=== PATIENT | female | born 1935 | race Caucasian/White ===

== ENCOUNTER → 2016-11-24 | Outpatient (CLI) | payer MEDICARE, BC ==
[2016-11-24 08:15] LABS: ABSOLUTE EOSINOPHILS # (AUTO) 0.3 10^3/uL (0.0-0.6); ABSOLUTE LYMPHOCYTES (AUTO) 0.9 10^3/uL (0.5-4.7); ABSOLUTE MONOCYTES (AUTO) 0.2 10^3/uL (0.1-1.4); BASOPHILS % (AUTO) 0.4 % (0-2); EOSINOPHILS % (AUTO) 7.8 % (0-6); LYMPHOCYTES % (AUTO) 19.2 % (13-45); MEAN CORPUSCULAR HEMOGLOBIN 31.1 pg (27.0-33.4); MEAN CORPUSCULAR HGB CONC 34.3 g/dL (32.0-36.0); MEAN CORPUSCULAR VOLUME 91 fl (80-97); MONOCYTES % (AUTO) 5.3 % (3-13); RED BLOOD COUNT 4.52 10^6/uL (3.72-5.28); RED CELL DISTRIBUTION WIDTH 13.3 % (11.5-14.0); SEGMENTED NEUTROPHILS % (AUTO) 67.3 % (42-78); WHITE BLOOD COUNT 4.5 10^3/uL (4.0-10.5)
[2016-11-24 08:36] LABS: ALANINE AMINOTRANSFERASE 34 U/L (9-52); ALBUMIN 4.2 g/dL (3.5-5.0); ALKALINE PHOSPHATASE 133 U/L (38-126); ANION GAP 11 (5-19); ASPARTATE AMINO TRANSFERASE 26 U/L (14-36); BILIRUBIN,DIRECT 0.1 mg/dL (0.0-0.4); BILIRUBIN,TOTAL 0.7 mg/dL (0.2-1.3); BLOOD UREA NITROGEN 11 mg/dL (7-20); CALCIUM 9.6 mg/dL (8.4-10.2); CARBON DIOXIDE 30 mmol/L (22-30); CHLORIDE 105 mmol/L (98-107); CHOLESTEROL 131.39 mg/dL (0-200); CREATININE RESULT 0.66 mg/dL (0.52-1.25); Direct HDL 48 mg/dL (>40); GLUCOSE 119 mg/dL (75-110); POTASSIUM 3.8 mmol/L (3.6-5.0); SODIUM 146.3 mmol/L (137-145); TOTAL PROTEIN 6.8 g/dL (6.3-8.2); TRIGLYCERIDES 95 mg/dL (<150)
[2016-11-24 08:46] LABS: DIRECT LDL 57 mg/dL (<100)
== END ==
LOC: OD 07:48
PROVIDERS: ATTEND Physician Assistant
DX: I10 Essential (primary) hypertension (principal); E78.2 Mixed hyperlipidemia
CPT/HCPCS: 36415; 80053; 80061; 85025

== ENCOUNTER → 2017-06-12 | Outpatient (CLI) | payer MEDICARE, BC ==
[2017-06-12 08:21] LABS: ABSOLUTE EOSINOPHILS # (AUTO) 0.2 10^3/uL (0.0-0.6); ABSOLUTE LYMPHOCYTES (AUTO) 0.7 10^3/uL (0.5-4.7); ABSOLUTE MONOCYTES (AUTO) 0.3 10^3/uL (0.1-1.4); ABSOLUTE NEUT (AUTO) 3.2 10^3/uL (1.7-8.2); BASOPHILS % (AUTO) 0.5 % (0-2); HEMATOCRIT 37.7 % (36.0-47.0); HEMOGLOBIN 13.1 g/dL (12.0-15.5); HGB HCT DIFFERENCE 1.6; MEAN CORPUSCULAR HEMOGLOBIN 31.8 pg (27.0-33.4); MEAN CORPUSCULAR HGB CONC 34.7 g/dL (32.0-36.0); MEAN CORPUSCULAR VOLUME 92 fl (80-97); MONOCYTES % (AUTO) 7.6 % (3-13); RED BLOOD COUNT 4.11 10^6/uL (3.72-5.28); RED CELL DISTRIBUTION WIDTH 13.4 % (11.5-14.0); SEGMENTED NEUTROPHILS % (AUTO) 71.9 % (42-78); WHITE BLOOD COUNT 4.4 10^3/uL (4.0-10.5)
[2017-06-12 08:39] LABS: ALANINE AMINOTRANSFERASE 40 U/L (9-52); ALBUMIN 4.1 g/dL (3.5-5.0); ALKALINE PHOSPHATASE 122 U/L (38-126); ANION GAP 13 (5-19); ASPARTATE AMINO TRANSFERASE 26 U/L (14-36); BILIRUBIN,DIRECT 0.4 mg/dL (0.0-0.4); BILIRUBIN,TOTAL 0.7 mg/dL (0.2-1.3); BLOOD UREA NITROGEN 11 mg/dL (7-20); CALCIUM 9.2 mg/dL (8.4-10.2); CARBON DIOXIDE 29 mmol/L (22-30); CHLORIDE 104 mmol/L (98-107); CHOLESTEROL 128.11 mg/dL (0-200); CREATININE RESULT 0.72 mg/dL (0.52-1.25); Direct HDL 49 mg/dL (>40); GLUCOSE 101 mg/dL (75-110); POTASSIUM 3.8 mmol/L (3.6-5.0); SODIUM 145.5 mmol/L (137-145); TOTAL PROTEIN 6.7 g/dL (6.3-8.2); TRIGLYCERIDES 88 mg/dL (<150)
[2017-06-12 08:51] LABS: DIRECT LDL 61 mg/dL (<100)
== END ==
LOC: OD 07:03
PROVIDERS: ATTEND Physician Assistant
DX: E78.2 Mixed hyperlipidemia (principal); D64.9 Anemia, unspecified; R73.01 Impaired fasting glucose; E55.9 Vitamin D deficiency, unspecified
CPT/HCPCS: 36415; 80053; 80061; 82306; 83036; 85025

== ENCOUNTER 2017-08-29 10:38 | Emergency (ER) | payer MEDICARE, BC ==
[2017-08-29] MEDS ORDERED: ASPIRIN 81 MG TABLET, CHEWABLE PO ONE (11:18)
[2017-08-29] MEDS ORDERED: DILTIAZEM HCL INJ 25 MG/5 ML VIAL IV ONE (11:21)
[2017-08-29] MEDS ORDERED: DILTIAZEM HCL/D5W 125 MG/125 ML RTUINJ IV PRN (11:22)
[2017-08-29 11:37] LABS: ABSOLUTE EOSINOPHILS # (AUTO) 0.1 10^3/uL (0.0-0.6); ABSOLUTE LYMPHOCYTES (AUTO) 1.1 10^3/uL (0.5-4.7); ABSOLUTE MONOCYTES (AUTO) 0.3 10^3/uL (0.1-1.4); ABSOLUTE NEUT (AUTO) 4.6 10^3/uL (1.7-8.2); BASOPHILS % (AUTO) 0.5 % (0-2); EOSINOPHILS % (AUTO) 1.3 % (0-6); HEMATOCRIT 41.4 % (36.0-47.0); HEMOGLOBIN 14.3 g/dL (12.0-15.5); LYMPHOCYTES % (AUTO) 17.8 % (13-45); MEAN CORPUSCULAR HEMOGLOBIN 31.4 pg (27.0-33.4); MEAN CORPUSCULAR HGB CONC 34.6 g/dL (32.0-36.0); MEAN CORPUSCULAR VOLUME 91 fl (80-97); MONOCYTES % (AUTO) 5.4 % (3-13); PLATELET COUNT 149 10^3/uL (150-450); RED BLOOD COUNT 4.57 10^6/uL (3.72-5.28); RED CELL DISTRIBUTION WIDTH 12.5 % (11.5-14.0); TOTAL CELLS COUNTED % (AUTO) 100 %; WHITE BLOOD COUNT 6.1 10^3/uL (4.0-10.5)
--- NOTE | 2017-08-29 11:37 | ER Document Report ---
ED General - General Chief Complaint: Palpitations Stated Complaint: CHEST PAIN Time Seen by Provider: 08/29/17 11:03 Notes: Patient was sent here from Dr. Rolon office where she was evaluated this morning for atrial fibrillation that would not slow down or convert. She says she has had these symptoms currently for about 2 days. She has a long-standing history of atrial fibrillation intermittently, first diagnosed in the . She is seen by a local construction scheduler, Dr. Che, last saw him about 3 weeks ago. Currently on Cartia for her atrial fibrillation. Currently denies any chest pains or any abdominal pains. Says she does suffer from exertional shortness of breath. Has not been ill recently in any way. Denies any recent fevers. PMH: Non-Hodgkin's lymphoma treated with chemotherapy about 4 years ago, in remission. Depression History of subdural hematomas 2, but no surgical intervention. Right TKR, left THR. TRAVEL OUTSIDE OF THE [place] IN LAST 30 DAYS: No - Related Data Allergies/Adverse Reactions: No Known Allergies Allergy (Verified 09/09/13 08:23) Home Medications: Current Home Medications Buspirone HCl [Buspar 15 mg Tablet] 0.5 tab PO DAILY 08/29/17 [History] Diltiazem HCl [Diltiazem 24Hr ER] 240 mg PO DAILY 08/29/17 [History] Ergocalciferol (Vitamin D2) [Vitamin D2] 50,000 unit PO Q7D@1000 08/29/17 [ History] Escitalopram Oxalate [Lexapro 10 mg Tablet] 20 mg PO DAILY 08/29/17 [History] Furosemide [Lasix 20 mg Tablet] 20 mg PO DAILY 08/29/17 [History] Potassium Chloride [Klor-Con 10] 10 meq PO DAILY 08/29/17 [History] Simvastatin 10 mg PO QHS 08/29/17 [History] Tiotropium [place] [Spiriva Respimat] 2 puff IH DAILY 08/29/17 [History] Tolterodine Tartrate [Tolterodine Tartrate ER] 4 mg PO DAILY 08/29/17 [History] Past Medical History - Social History Smoking Status: Unknown if Ever Smoked Cigarette use (# per day): No Family History: DM, Malignancy, Other - colitis - Past Medical History Cardiac Medical History: Reports: Hx Atrial Fibrillation, Hx Hypertension Pulmonary Medical History: Reports: Hx COPD, Hx Pneumonia - at age 42 Malignancy Medical History: Reports: Hx Lymphoma - non hodgkins treated with chemotherapy about 4 years ago and in remission Musculoskeltal Medical History: Reports Hx Arthritis - back, Past Surgical History: Reports: Hx Gastric Bypass Surgery - lap band, Hx Hysterectomy, Hx Orthopedic Surgery - L hip and R knee replacements - Immunizations Hx Diphtheria, Pertussis, Tetanus Vaccination: No Hx Pneumococcal Vaccination: 08/20/02 Review of Systems - Review of Systems Notes: REVIEW OF SYSTEMS: CONSTITUTIONAL : Denies fever. EENT: Denies eye, ear, nose or mouth or throat pain or other symptoms. CARDIOVASCULAR: Denies chest pain. No peripheral edema. RESPIRATORY: Denies cough, chest congestion, but has exertional shortness of breath. GASTROINTESTINAL: Denies abdominal pain or nausea, vomiting, or diarrhea. GENITOURINARY: Denies difficulty or painful urinating, urinary frequency, blood in urine. MUSCULOSKELETAL: Denies back or neck pain. Denies joint pain or swelling. SKIN: Denies rash or skin lesions. NEUROLOGICAL: Denies LOC or altered mental status. Denies headache. Denies sensory loss or motor deficits. ALL OTHER SYSTEMS REVIEWED AND NEGATIVE. Physical Exam - Vital signs Vitals: Temp Pulse Resp BP Pulse Ox 97.7 F 96 18 154/60 H 97 08/29/17 10:53 08/29/17 10:53 08/29/17 10:53 08/29/17 10:53 08/29/17 10:53 Interpretation: Normal, Other - Irregular heart rate - Notes Notes: PHYSICAL EXAMINATION: GENERAL: Well-appearing, in no acute distress. Heart rate about 135 by EKG at triage. Other vital signs essentially normal. HEAD: Atraumatic, normocephalic. EYES: Pupils equal round and reactive to light, extraocular movements intact. ENT: oropharynx clear without exudates. Moist mucous membranes. NECK: Normal range of motion, supple. LUNGS: Breath sounds clear and equal bilaterally. HEART: Irregularly irregular rate and rhythm without murmurs. ABDOMEN: Soft, nontender. No guarding or rebound. No masses. BACK: No tenderness throughout entire back. EXTREMITIES: Normal range of motion without pain. No edema. Negative Homans. NEUROLOGICAL: Normal speech, normal gait. Normal sensory, motor, and reflex exams. Awake, alert, and oriented x3. Cranial nerves normal. PSYCH: Normal mood, normal affect. SKIN: Warm, dry, no rashes. Course - Re-evaluation Re-evalutation: 08/29/17 12:10 Patient has been given a 5 mg bolus of Cardizem and is on a 5 mg/h drip. She experienced a transient drop in blood pressure and I ordered a bolus of saline. Blood pressure is now back to normal and her ventricular rate is in the 100- 110 area. I am going to increase her drip to 10 mg/h. Patient feels well. 08/29/17 13:29 Patient continues to have a heart rate in the 100 - 120 area. Cardizem drip is up to 15 mg/h now. I have ordered a 0.25 mg Lanoxin IV. Spoke with Hospitalist, Dr. Baer, who will admit the patient. 08/29/17 16:54 Patient's heart rate slowed down to about 60 and she converted into a normal sinus rhythm. She says that she feels fine. I contacted her construction scheduler, Dr. Che, who said he felt it was fine to let her go home and he will see her at 9:00 in the morning in his office. - Vital Signs Vital signs: Temp Pulse Resp BP Pulse Ox 97.7 F 96 20 125/49 L 97 08/29/17 10:53 08/29/17 10:53 08/29/17 15:31 08/29/17 15:31 08/29/17 15:31 - Laboratory Result Diagrams: 08/29/17 11:09 08/29/17 11:09 Laboratory results interpreted by me: 08/29/17 08/29/17 08/29/17 11:09 11:09 11:48 Plt Count 149 L Alkaline Phosphatase 134 H Urine Blood SMALL H - Diagnostic Test Radiology results interpreted by me: 08/29/17 13:31 Chest x-ray shows COPD.. - EKG Interpretation by Ks Rate: Tachycardia Rhythm: A.Fib Critical Care Note - Critical Care Note Total time excluding time spent on procedures (mins): 40 Discharge - Discharge Clinical Impression: Atrial fibrillation with rapid ventricular response Condition: Serious Disposition: HOME, SELF-CARE Additional Instructions: Atrial Fibrillation Atrial fibrillation is an abnormal heart rhythm, caused by irregular electrical circuits in the upper heart chamber. It can be caused by heart valve disease, hardening of the arteries, or metabolic problems such as thyroid disease, or may occur without a clear cause. Atrial fibrillation may occur only occasionally, or may be chronic. Atrial fibrillation often results in a very fast heart rate, with palpitations, lightheadedness, and shortness of breath. Treatment is to slow the abnormally fast rate, and to convert the rhythm back to normal, if possible. Many patients stay in atrial fibrillation for years without symptoms or complications. Your doctor will decide whether you can be converted back to a normal heart rhythm. Contact the doctor or emergency medical system at once if you develop chest pain, shortness of breath, or severe lightheadedness, or if you develop any disturbance of consciousness, problems with speech, or localized weakness. Calcium Channel Blockers A medication of the calcium channel lakeisha type has been prescribed for you. Examples of this type of medicine are Calan, Isoptin, Procardia, and Cardizem. These medicines have a variety of uses, including prevention of angina attacks, treatment of blood pressure, regulation of certain heart rhythm problems, and prevention of migraine headaches. Calcium channel blockers work by interfering with the flow of calcium in cell membranes. This results in dilation of blood vessels, and slowing of electrical conduction in the heart. A slight dizziness (due to a fall in blood pressure) may occur with the first dose, and sometimes even with later doses. This may make you prone to dizziness if you stand up suddenly. Call the doctor if lightheadedness is severe, or if you develop palpitations, shortness of breath, or any other new or alarming symptoms. Follow-up with your construction scheduler, Dr. Che, at 9 AM tomorrow morning. FOLLOW-UP CARE: If you have been referred to a physician for follow-up care, call the physician s office for an appointment as you were instructed or within the next two days. If you experience worsening or a significant change in your symptoms, notify the physician immediately or return to the Emergency Department at any time for re-evaluation. Referrals: JAMAL ROLON MD [Primary Care Provider] - Follow up as needed
[2017-08-29 11:43] LABS: INTERNATIONAL RATION (INR) 0.95; PROTHROMBIN TIME 13.3 SEC (11.4-15.4)
[2017-08-29 12:01] LABS: ALANINE AMINOTRANSFERASE 33 U/L (9-52); ALBUMIN 4.3 g/dL (3.5-5.0); ALKALINE PHOSPHATASE 134 U/L (38-126); ANION GAP 13 (5-19); ASPARTATE AMINO TRANSFERASE 28 U/L (14-36); BILIRUBIN,DIRECT 0.3 mg/dL (0.0-0.4); BILIRUBIN,TOTAL 0.8 mg/dL (0.2-1.3); BLOOD UREA NITROGEN 15 mg/dL (7-20); CALCIUM 10.1 mg/dL (8.4-10.2); CARBON DIOXIDE 28 mmol/L (22-30); CHLORIDE 103 mmol/L (98-107); CREATINE KINASE 52 U/L (30-135); GLUCOSE 108 mg/dL (75-110); POTASSIUM 3.9 mmol/L (3.6-5.0); SODIUM 143.8 mmol/L (137-145)
--- NOTE | 2017-08-29 12:07 | RADIOLOGY REPORT (SQ) ---
EXAM DESCRIPTION: CHEST SINGLE VIEW COMPLETED DATE/TIME: 08/29/2017 11:48 am REASON FOR STUDY: Atrial fibrillation with exertional dyspnea COMPARISON: CT chest 12/27/2015 AP chest 06/11/2011 EXAM PARAMETERS: NUMBER OF VIEWS: One view. TECHNIQUE: Single frontal radiographic view of the chest acquired. RADIATION DOSE: NA LIMITATIONS: None. FINDINGS: LUNGS AND PLEURA: Upper lobes are hyperlucent from obstructive disease No focal infiltrates. No pleural effusion. No pneumothorax. MEDIASTINUM AND HILAR STRUCTURES: No masses. Contour normal. HEART AND VASCULAR STRUCTURES: Stable moderate to marked cardiomegaly BONES: Osteopenic HARDWARE: Right-sided permanent central line tip superior vena cava. Catheter is kinked as it passes between the clavicle and right anterior 1st rib. OTHER: No other significant finding. IMPRESSION: Obstructive lung disease. No acute infiltrates. No pleural effusion TECHNICAL DOCUMENTATION: JOB ID: [id number] [employer]- All Rights Reserved
[2017-08-29 12:14] LABS: CREATINE KINASE MB 1.15 ng/mL (<4.55)
[2017-08-29 12:17] LABS: TROPONIN I 0.059 ng/mL
[2017-08-29] MEDS ORDERED: DIGOXIN INJ 0.5 MG/2 ML AMPULE IV ONE (13:04)
[2017-08-29] MEDS ORDERED: NORMAL SALINE 1000 ML 1,000 ML IV PRN (13:34)
[2017-08-29] MEDS ORDERED: ONDANSETRON HCL INJ/PF 4 MG/2 ML SDV IV PRN (13:34)
[2017-08-29] MEDS ORDERED: ACETAMINOPHEN 325 MG TABLET PO PRN (13:34)
--- NOTE | 2017-08-29 13:35 | EKG REPORT ---
SEVERITY:- ABNORMAL ECG - ATRIAL FIBRILLATION BORDERLINE R WAVE PROGRESSION, ANTERIOR LEADS BORDERLINE T WAVE ABNORMALITIES : Confirmed by: Hernan Gaspar MD 29-Aug-2017 13:35:05
[2017-08-29 13:45] LABS: APPEARANCE,URINE CLEAR; BILIRUBIN,URINE NEGATIVE (NEGATIVE); COLOR,URINE STRAW; GLUCOSE, URINE NEGATIVE (NEGATIVE); KETONES,URINE NEGATIVE (NEGATIVE); LEUKOCYTE ESTERASE,URINE NEGATIVE (NEGATIVE); NITRITE,URINE NEGATIVE (NEGATIVE); PROTEIN,URINE NEGATIVE (NEGATIVE); URINE SPECIFIC GRAVITY 1.005; UROBILINOGEN,URINE NEGATIVE mg/dL (<2.0)
[2017-08-29 15:07] LABS: FREE T3 3.02 pg/mL (2.77-5.27)
[2017-08-29 15:08] LABS: FREE T4 (FREE THYROXINE) 1.58 ng/dL (0.78-2.19)
[2017-08-29 15:21] LABS: THYROID STIMULATING HORMONE 1.17 uIU/mL (0.47-4.68)
[2017-08-29 17:57] VITALS: BP 132/68
--- NOTE | 2017-08-29 18:35 | EKG REPORT ---
SEVERITY:- BORDERLINE ECG - SINUS RHYTHM BORDERLINE R WAVE PROGRESSION, ANTERIOR LEADS BORDERLINE T ABNORMALITIES, DIFFUSE LEADS : Confirmed by: Hernan Gaspar MD 29-Aug-2017 18:34:44
[2017-08-29] MEDS ORDERED: ENOXAPARIN SODIUM INJ 120 MG/0.8 ML DISP.SYRIN SUBCUT SCH (22:00)
[2017-08-29] MEDS ORDERED: DILTIAZEM HCL 240 MG CAPSULE.CR PO SCH (22:00)
[2017-08-29] MEDS ORDERED: TOLTERODINE TARTRATE PO SCH (22:00)
[2017-08-29] MEDS ORDERED: ESCITALOPRAM OXALATE 10 MG TABLET PO SCH (22:00)
[2017-08-29] MEDS ORDERED: DILTIAZEM HCL PO SCH (22:00)
[2017-08-29] MEDS ORDERED: SIMVASTATIN 10 MG TABLET PO SCH (22:00)
[2017-08-29] MEDS ORDERED: TOLTERODINE TARTRATE 1 MG TABLET PO SCH (22:00)
[2017-08-30] MEDS ORDERED: LANSOPRAZOLE 30 MG TAB.RAP.DR PO SCH (06:00)
--- NOTE | 2017-08-30 21:15 | PDOC CONSULTATION ---
Consultation Consult Date: 08/29/17 Consult reason:: Shortness of breath History of Present Illness Admission Date/PCP: JAMAL TILLMAN MD Patient complains of: Shortness of breath and rapid heartbeat History of Present Illness: HONORIO PERALTA is a 82 year old female with paroxysmal atrial fibrillation with RVR. Patient states that she goes into A. [place] from time to time. Patient states normally it lasts about 5 hours but sometimes 12 hours. Patient states this time it last 48 hours and she was becoming very concerned. Patient states she became lightheaded, dizzy and short of breath. Patient follows with Dr. Che and is currently on diltiazem. In the ED patient was started on diltiazem drip and given digoxin. 5 time patient was evaluated by the hospitalist patient with a normal sinus rhythm with a heart rate of 60. Past Medical History Cardiac Medical History: Reports: Atrial Fibrillation, Hypertension Denies: Coronary Artery Disease, Myocardial Infarction Pulmonary Medical History: Reports: Chronic Obstructive Pulmonary Disease (COPD) , Pneumonia - at age 42 Denies: Asthma, Bronchitis Neurological Medical History: Denies: Seizures Malignancy Medical History: Reports: Lymphoma - non hodgkins treated with chemotherapy about 4 years ago and in remission Musculoskeltal Medical History: Reports: Arthritis - back, Hematology: Denies: Anemia Past Surgical History Past Surgical History: Reports: Gastric Bypass Surgery - lap band, Hysterectomy , Orthopedic Surgery - L hip and R knee replacements Denies: Pacemaker Social History Information Source: Patient Smoking Status: Unknown if Ever Smoked Frequency of Alcohol Use: None - Advance Directive Resuscitation Status: Full Code Family History Family History: DM, Malignancy, Other - colitis Parental Family History Reviewed: No Children Family History Reviewed: No Sibling(s) Family History Reviewed.: No Medication/Allergy Home Medications: Buspirone HCl [Buspar 15 mg Tablet] 0.5 tab PO DAILY 08/29/17 Diltiazem HCl [Diltiazem 24Hr ER] 240 mg PO DAILY 08/29/17 Ergocalciferol (Vitamin D2) [Vitamin D2] 50,000 unit PO Q7D@1000 08/29/17 Escitalopram Oxalate [Lexapro 10 mg Tablet] 20 mg PO DAILY 08/29/17 Furosemide [Lasix 20 mg Tablet] 20 mg PO DAILY 08/29/17 Potassium Chloride [Klor-Con 10] 10 meq PO DAILY 08/29/17 Simvastatin 10 mg PO QHS 08/29/17 Tiotropium [place] [Spiriva Respimat] 2 puff IH DAILY 08/29/17 Tolterodine Tartrate [Tolterodine Tartrate ER] 4 mg PO DAILY 08/29/17 Allergies/Adverse Reactions: No Known Allergies Allergy (Verified 09/09/13 08:23) Review of Systems Constitutional: ABSENT: chills, fever(s), headache(s), weight gain, weight loss Eyes: ABSENT: visual disturbances Ears: ABSENT: hearing changes Cardiovascular: PRESENT: dyspnea on exertion, palpitations. ABSENT: chest pain , edema, orthropnea Respiratory: PRESENT: dyspnea. ABSENT: cough, hemoptysis Gastrointestinal: ABSENT: abdominal pain, constipation, diarrhea, hematemesis, hematochezia, nausea, vomiting Genitourinary: ABSENT: dysuria, hematuria Musculoskeletal: ABSENT: joint swelling Integumentary: ABSENT: rash, wounds Neurological: PRESENT: dizziness. ABSENT: abnormal gait, abnormal speech, confusion, focal weakness, syncope Psychiatric: ABSENT: anxiety, depression, homidical ideation, suicidal ideation Endocrine: ABSENT: cold intolerance, heat intolerance, polydipsia, polyuria Hematologic/Lymphatic: ABSENT: easy bleeding, easy bruising Physical Exam Vital Signs: Temp Pulse Resp BP Pulse Ox 97.5 F 64 14 132/68 H 96 08/29/17 17:09 08/29/17 17:09 08/29/17 17:09 08/29/17 17:09 08/29/17 17:09 Intake & Output 08/29/17 08/30/17 08/31/17 06:59 06:59 06:59 Weight 115.7 kg General appearance: PRESENT: no acute distress, obese, well-developed, well- nourished Head exam: PRESENT: normocephalic Eye exam: PRESENT: EOMI. ABSENT: scleral icterus Ear exam: PRESENT: normal external ear exam Mouth exam: PRESENT: moist Neck exam: ABSENT: carotid bruit, JVD, lymphadenopathy, thyromegaly Respiratory exam: PRESENT: clear to auscultation [place]. ABSENT: rales, rhonchi, wheezes Cardiovascular exam: PRESENT: RRR. ABSENT: diastolic murmur, rubs, systolic murmur Pulses: PRESENT: normal dorsalis pedis pul Vascular exam: PRESENT: normal capillary refill GI/Abdominal exam: PRESENT: normal bowel sounds, soft. ABSENT: distended, guarding, mass, organolmegaly, rebound, tenderness Rectal exam: PRESENT: deferred Extremities exam: PRESENT: full ROM. ABSENT: calf tenderness, clubbing, pedal edema Neurological exam: PRESENT: alert, awake, oriented to person, oriented to place , oriented to time, oriented to situation, CN II-XII grossly intact. ABSENT: motor sensory deficit Psychiatric exam: PRESENT: appropriate affect, normal mood. ABSENT: homicidal ideation, suicidal ideation Skin exam: PRESENT: dry, intact, warm. ABSENT: cyanosis, rash Results Laboratory Results: 08/29/17 11:09 08/29/17 11:09 08/29/17 08/29/17 08/29/17 11:09 11:09 14:37 Creatine Kinase 52 CK-MB (CK-2) 1.15 Troponin I 0.059 0.056 Impressions: Chest X-Ray 08/29/17 11:19 IMPRESSION: Obstructive lung disease. No acute infiltrates. No pleural effusion Assessment & Plan - Diagnosis (1) Atrial fibrillation with rapid ventricular response Is this a current diagnosis for this admission?: Yes Plan: Patient was on Cardizem drip and given diltiazem. Patient now in normal sinus rhythm with a heart rate of 60 bpm. Patient not on anticoagulation due to her chronic thrombocytopenia. 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 Lockhart was contacted by the ED who stated that they were okay with her being discharged follow-up in his clinic the next day. Thank you for consulting the hospitalist to participate in the care of this patient. - Time Time Spent: 30 to 50 Minutes Anticipated discharge: Home
== END 2017-08-29 17:09 | disposition home or self-care (01) ==
LOC: ER 10:38 → UNDOADMIN 14:04 → EH 14:04 → ER 17:09
DX: I48.91 Unspecified atrial fibrillation (principal); Z79.899 Other long term (current) drug therapy; I10 Essential (primary) hypertension; R00.0 Tachycardia, unspecified; J44.9 Chronic obstructive pulmonary disease, unspecified; R06.02 Shortness of breath; Z85.72 Personal history of non-Hodgkin lymphomas; Z92.21 Personal history of antineoplastic chemotherapy; Z98.84 Bariatric surgery status
CPT/HCPCS: 93005; 99291; 96375; 96365; 96366; 36415; 84439; 82553; 82550; 83735; 84443; 85025; 85610; 80053; 81001; 84484; 84481; 71045; 93010; J1160; J3490 ×2

== ENCOUNTER 2017-09-01 21:24 | Emergency (ER) | payer MEDICARE, BC ==
[2017-09-01] MEDS ORDERED: DILTIAZEM HCL INJ 25 MG/5 ML VIAL IV ONE (21:54)
[2017-09-01 22:15] LABS: ABSOLUTE EOSINOPHILS # (AUTO) 0.3 10^3/uL (0.0-0.6); ABSOLUTE MONOCYTES (AUTO) 0.4 10^3/uL (0.1-1.4); ABSOLUTE NEUT (AUTO) 4.8 10^3/uL (1.7-8.2); BASOPHILS % (AUTO) 0.5 % (0-2); EOSINOPHILS % (AUTO) 4.2 % (0-6); HEMATOCRIT 40.3 % (36.0-47.0); HEMOGLOBIN 13.7 g/dL (12.0-15.5); MEAN CORPUSCULAR HEMOGLOBIN 30.9 pg (27.0-33.4); MEAN CORPUSCULAR VOLUME 91 fl (80-97); MONOCYTES % (AUTO) 5.5 % (3-13); PLATELET COUNT 145 10^3/uL (150-450); RED BLOOD COUNT 4.44 10^6/uL (3.72-5.28); RED CELL DISTRIBUTION WIDTH 12.5 % (11.5-14.0); SEGMENTED NEUTROPHILS % (AUTO) 74.8 % (42-78); TOTAL CELLS COUNTED % (AUTO) 100 %; WHITE BLOOD COUNT 6.4 10^3/uL (4.0-10.5)
[2017-09-01 22:34] LABS: ANION GAP 11 (5-19); BLOOD UREA NITROGEN 17 mg/dL (7-20); CALCIUM 9.7 mg/dL (8.4-10.2); CARBON DIOXIDE 30 mmol/L (22-30); CHLORIDE 102 mmol/L (98-107); GLUCOSE 122 mg/dL (75-110); MAGNESIUM 1.7 mg/dL (1.6-2.3); POTASSIUM 3.7 mmol/L (3.6-5.0); SODIUM 143.1 mmol/L (137-145)
[2017-09-01] MEDS ORDERED: NORMAL SALINE 500 ML IV ONE (22:42)
--- NOTE | 2017-09-01 22:48 | ER Document Report ---
ED General - General Chief Complaint: Palpitations Stated Complaint: PALPITATIONS Time Seen by Provider: 09/01/17 21:45 Mode of Arrival: Ambulatory - pt. Information source: Patient TRAVEL OUTSIDE OF THE [place] IN LAST 30 DAYS: No - HPI Patient complains to provider of: "i'm in afib" Onset: Just prior to arrival Onset/Duration: Sudden Severity: Moderate Associated symptoms: Other - mildly dizzy when walking Exacerbated by: Denies Relieved by: Supine Similar symptoms previously: Yes Recently seen / treated by doctor: Yes - saw cards yesterday. Cartia increased. Placed on eliquis Notes: Patient states that she has a history of atrial fibrillation. She has been on Cartia and it was increased yesterday from 240 mg to 300 mg. She was also placed on Eliquis yesterday. She states that Dr. Che her acute care assistant is going to do a stress test on her. - Related Data Allergies/Adverse Reactions: No Known Allergies Allergy (Verified 09/09/13 08:23) Past Medical History - General Information source: Patient - Social History Smoking Status: Unknown if Ever Smoked Cigarette use (# per day): No Chew tobacco use (# tins/day): No Smoking Education Provided: No Frequency of alcohol use: None Drug Abuse: None Lives with: Alone, Other - Patient was for 53 years and her approximately 6 years ago Family History: DM, Malignancy, Other - colitis Patient has suicidal ideation: No Patient has homicidal ideation: No - Past Medical History Cardiac Medical History: Reports: Hx Atrial Fibrillation, Hx Hypertension Denies: Hx Coronary Artery Disease, Hx Heart Attack Pulmonary Medical History: Reports: Hx COPD, Hx Pneumonia - at age 42 Denies: Hx Asthma, Hx Bronchitis EENT Medical History: Reports: None Neurological Medical History: Denies: Hx Cerebrovascular Accident, Hx Seizures Endocrine Medical History: Reports: None Renal/ Medical History: Reports: None. Denies: Hx Peritoneal Dialysis Malignancy Medical History: Reports: Hx Lymphoma - non hodgkins treated with chemotherapy about 4 years ago and in remission GI Medical History: Reports: None Musculoskeltal Medical History: Reports Hx Arthritis - back, Past Surgical History: Reports: Hx Gastric Bypass Surgery - lap band, Hx Hysterectomy, Hx Orthopedic Surgery - L hip and R knee replacements. Denies: Hx Pacemaker - Immunizations Hx Diphtheria, Pertussis, Tetanus Vaccination: No Hx Pneumococcal Vaccination: 08/20/02 Review of Systems - Review of Systems Constitutional: No symptoms reported EENT: No symptoms reported Cardiovascular: Palpitations Respiratory: No symptoms reported Gastrointestinal: No symptoms reported Genitourinary: No symptoms reported Female Genitourinary: No symptoms reported Musculoskeletal: No symptoms reported Skin: No symptoms reported Hematologic/Lymphatic: No symptoms reported Neurological/Psychological: No symptoms reported Physical Exam - Vital signs Vitals: Temp Pulse Resp BP Pulse Ox 97.3 F 153 H 24 H 128/83 H 99 09/01/17 21:28 09/01/17 21:28 09/01/17 21:28 09/01/17 21:28 09/01/17 21:28 - Notes Notes: PHYSICAL EXAMINATION: GENERAL: Well-appearing, well-nourished and in no acute distress. HEAD: Atraumatic, normocephalic. EYES: Pupils equal round and reactive to light, extraocular movements intact, conjunctiva are normal. ENT: Nares patent, oropharynx clear without exudates. Moist mucous membranes. NECK: Normal range of motion, supple without lymphadenopathy LUNGS: Breath sounds clear to auscultation bilaterally and equal. No wheezes rales or rhonchi. HEART: Tacky. Irregularly irregular. No murmur appreciated ABDOMEN: Soft, nontender, nondistended abdomen. No guarding, no rebound. No masses appreciated. Female : deferred Musculoskeletal: Normal range of motion, no pitting or edema. No cyanosis. NEUROLOGICAL: Cranial nerves grossly intact. Normal speech, normal gait. Normal sensory, motor exams PSYCH: Normal mood, normal affect. SKIN: Warm, Dry, normal turgor, no rashes or lesions noted. Course - Re-evaluation Re-evalutation: 09/01/17 23:58 His repeat EKG done 09/01/2017 shows sinus rhythm with rate of 70. She is slightly hypotensive with the systolic blood pressure of 90. This did occur last time when she was given Cardizem as well. Patient will receive some IV fluids. When her blood pressure normalizes she will be discharged home. - Vital Signs Vital signs: Temp Pulse Resp BP Pulse Ox 97.3 F 153 H 25 H 97/75 L 97 09/01/17 21:28 09/01/17 21:28 09/01/17 22:37 09/01/17 22:37 09/01/17 22:37 - Laboratory Result Diagrams: 09/01/17 22:00 09/01/17 22:00 Laboratory results interpreted by me: 09/01/17 09/01/17 22:00 22:00 Plt Count 145 L Glucose 122 H - EKG Interpretation by Me Rhythm: A.Fib - 141 bpm Discharge - Discharge Clinical Impression: Atrial fibrillation with rapid ventricular response Condition: Stable Disposition: HOME, SELF-CARE Additional Instructions: Please continue all outpatient medications as previously prescribed. Please call your acute care assistant in the morning for an appointment in the next few days. Please return to the emergency department if you have any concerns. Referrals: JAMAL TILLMAN MD [Primary Care Provider] - Follow up as needed
[2017-09-02 00:33] VITALS: BP 120/61
--- NOTE | 2017-09-02 08:37 | EKG REPORT ---
SEVERITY:- ABNORMAL ECG - ATRIAL FIBRILLATION BORDERLINE R WAVE PROGRESSION, ANTERIOR LEADS REPOLARIZATION ABNORMALITY, PROB RATE RELATED : Confirmed by: Hernan Gaspar MD 02-Sep-2017 08:37:06
--- NOTE | 2017-09-02 08:37 | EKG REPORT ---
SEVERITY:- BORDERLINE ECG - SINUS RHYTHM BORDERLINE R WAVE PROGRESSION, ANTERIOR LEADS : Confirmed by: Hernan Gaspar MD 02-Sep-2017 08:36:55
--- NOTE | 2017-09-02 14:48 | ER Document Report ---
Doctor's Note Notes: 09/02/17 14:47 I did call the patient today. She states that she feels like she is in normal sinus rhythm and she is doing well. She states she will be happy when this whole ordeal is over. She states that last night she did have an episode where she went into A. fib but again she is now in normal sinus rhythm and asymptomatic. She states she is following up with her senior database programmer as previously scheduled.
== END 2017-09-02 00:25 | disposition home or self-care (01) ==
LOC: ER 21:24
DX: I48.91 Unspecified atrial fibrillation (principal); Z79.899 Other long term (current) drug therapy; R42 Dizziness and giddiness; I10 Essential (primary) hypertension; J44.9 Chronic obstructive pulmonary disease, unspecified; Z85.72 Personal history of non-Hodgkin lymphomas; Z92.21 Personal history of antineoplastic chemotherapy; Z98.84 Bariatric surgery status
CPT/HCPCS: 93005; 99285; 96374; 36415; 83735; 85025; 80048; 84484; 93010; J3490; J7040